=== PATIENT | male | born 1995 | race Hispanic/Latino ===

== ENCOUNTER 2016-05-06 10:06 | Emergency (ER) | payer OTHER ==
[~2016-05-06] VITALS: Ht 185.4 cm; Wt 84.9 kg
[~2016-05-06 10:06] MED LIST: ATHENOL325 MG PO; AZITHROMYCIN250 MG1 PO; CLINDAMYCIN HC300 MG PO; DILANTIN100 MG PO; FLEXERIL10 MG PO; KEFLEX500 MG PO; KEPPRA1000 MG PO; KEPPRA500 MG PO; KEPPRA750 MG PO; LEVAQUIN500 MG PO; LEVETIRACETAM500 MG PO; MOTRIN600 MG PO; MOTRIN800 MG PO; NAPROSYN500 MG PO; NAPROXEN500 MG PO; NORCO 5/3251 TABLET PO; OXYCODONE H5 MG/5 ML PO; ULTRAM50 MG PO; VALIUM5 MG PO; VALPROIC ACID250 MG PO; ZOFRAN4 MG PO; [UNRECOGNIZED DRUG - REMARK]
[2016-05-06 10:10] VITALS: BP 82/70
[2016-05-06] MEDS ORDERED: KEFLEX500 MG PO (10:23)
== END 2016-05-06 10:47 | disposition home or self-care (01) ==
LOC: EME 10:06
DX: S61.012A Laceration without foreign body of left thumb without damage to nail, initial encounter (principal); W26.0XXA Contact with knife, initial encounter; Y93.E6 Activity, residential relocation; Z88.1 Allergy status to other antibiotic agents; F17.200 Nicotine dependence, unspecified, uncomplicated; G40.909 Epilepsy, unspecified, not intractable, without status epilepticus
CPT/HCPCS: 99281; 99284

== ENCOUNTER 2017-07-28 17:30 | Emergency (ER) | payer OTHER ==
[~2017-07-28] VITALS: Ht 182.9 cm; Wt 86.5 kg
[2017-07-28 18:34] LABS: HEMATOCRIT 35.7 % (38.0-50.0); HEMOGLOBIN 12.3 G/DL (12.5-16.6); MCH 32.2 PG (29.0-34.0); MCHC 34.5 G/DL (30.0-36.0); MCV 93.5 FL (86-99); PLATELET COUNT 229 K/uL (156-360); RBC DIS.WIDTH-CV 12.2 % (11.8-14.6); RBC DIS.WIDTH-SD 41.9 % (39-53); RED BLOOD COUNT 3.82 M/uL (4.00-5.50); WHITE BLOOD COUNT 8.1 K/uL (4.1-10.2)
[2017-07-28 18:46] LABS: CHLORIDE 109 mEq/L (99-109); POTASSIUM 3.9 mEq/L (3.7-5.4); SODIUM 142 mEq/L (136-147)
[2017-07-28 18:48] LABS: GLUCOSE 84 mg/dL (70-99)
[2017-07-28 18:52] LABS: CREATININE 0.9 mg/dL (0.6-1.3); GFR ESTIMATE (CALCULATED) > 59 mL/min/ (58.99-99999); UREA NITROGEN (BUN) 13 mg/dL (9-23)
[2017-07-28 20:48] VITALS: BP 113/60
== END 2017-07-28 20:50 | disposition home or self-care (01) ==
LOC: EME 17:30
PROVIDERS: Emergency Medicine
DX: S20.229A Contusion of unspecified back wall of thorax, initial encounter (principal); G40.909 Epilepsy, unspecified, not intractable, without status epilepticus; M54.2 Cervicalgia; R55 Syncope and collapse; W18.30XA Fall on same level, unspecified, initial encounter; Y92.238 Other place in hospital as the place of occurrence of the external cause; F17.200 Nicotine dependence, unspecified, uncomplicated; Z88.0 Allergy status to penicillin
CPT/HCPCS: 72040; 72070; 80048; 85027; 93005; 99281; 99285

== ENCOUNTER 2017-10-09 09:16 | Emergency (ER) | payer OTHER ==
[~2017-10-09] VITALS: Ht 188 cm; Wt 82.2 kg
[2017-10-09] MEDS ORDERED: VENTOLIN HFA18 GM IH (12:40)
[2017-10-09] MEDS ORDERED: LEVAQUIN750 MG PO (12:40)
[2017-10-09 12:52] VITALS: BP 109/70
== END 2017-10-09 12:55 | disposition home or self-care (01) ==
LOC: EME 09:16
DX: J40 Bronchitis, not specified as acute or chronic (principal); Z88.0 Allergy status to penicillin
CPT/HCPCS: 71046; 99281; 99285

== ENCOUNTER 2017-10-12 08:01 | Emergency (ER) | payer OTHER ==
[~2017-10-12] VITALS: Ht 188 cm; Wt 81.4 kg
[~2017-10-12 08:01] MED LIST changes: +LEVAQUIN750 MG PO; +VENTOLIN HFA18 GM IH
[2017-10-12 08:26] LABS: HEMATOCRIT 38.6 % (38.0-50.0); HEMOGLOBIN 13.6 G/DL (12.5-16.6); MCH 31.9 PG (29.0-34.0); MCHC 35.2 G/DL (30.0-36.0); MCV 90.6 FL (86-99); PLATELET COUNT 291 K/uL (156-360); RBC DIS.WIDTH-SD 39.9 % (39-53); RED BLOOD COUNT 4.26 M/uL (4.00-5.50); WHITE BLOOD COUNT 7.2 K/uL (4.1-10.2)
[2017-10-12 08:41] LABS: ALBUMIN 4.9 g/dL (3.2-4.8); CHLORIDE 110 mEq/L (99-109); POTASSIUM 4.2 mEq/L (3.7-5.4); SODIUM 142 mEq/L (136-147)
[2017-10-12 08:44] LABS: GLUCOSE 95 mg/dL (70-99); TOTAL PROTEIN 7.7 g/dL (6.4-8.3)
[2017-10-12 08:45] LABS: TOTAL BILIRUBIN 1.2 mg/dL (0.0-1.0)
[2017-10-12 08:47] LABS: ALKALINE PHOSPHATASE 57 IU/L (3-129); GFR ESTIMATE (CALCULATED) > 59 mL/min/ (58.99-99999)
[2017-10-12 08:48] LABS: UREA NITROGEN (BUN) 13 mg/dL (9-23)
[2017-10-12 08:49] LABS: AST (GOT) 15 IU/L (2-34)
[2017-10-12 08:50] LABS: ALT (GPT) 13 IU/L (3-49)
[2017-10-12] MEDS ORDERED: PREDNISONE20 MG PO (09:22)
[2017-10-12] MEDS ORDERED: ZOFRAN ODT4 MG PO (09:22)
[2017-10-12 10:12] LABS: APPEARANCE CLEAR ((CLEAR)); BILIRUBIN NEGATIVE; BLOOD NEGATIVE; COLOR YELLOW ((YELLOW)); GLUCOSE (STRIP) NEGATIVE; KETONES 20; LEUKOCYTES NEGATIVE; NITRITE NEGATIVE; PROTEIN (STRIP) 30; SPECIFIC GRAVITY 1.027 (1.000-1.030); UROBILINOGEN 0.2 MG/DL (0.2-1.0)
[2017-10-12 11:09] LABS: C DIFF TOXIN NEGATIVE (NEGATIVE)
[2017-10-12 11:32] VITALS: BP 95/65
== END 2017-10-12 11:33 | disposition home or self-care (01) ==
LOC: EME 08:01
PROVIDERS: Nurse Practitioner Family
DX: B34.9 Viral infection, unspecified (principal); R19.7 Diarrhea, unspecified; G40.909 Epilepsy, unspecified, not intractable, without status epilepticus; F12.90 Cannabis use, unspecified, uncomplicated; R20.2 Paresthesia of skin; R06.2 Wheezing; R06.02 Shortness of breath; Z88.0 Allergy status to penicillin; F17.200 Nicotine dependence, unspecified, uncomplicated
CPT/HCPCS: 80053; 81003; 85027; 87493; 94640; 99281; 99285; J2060; J7030